=== PATIENT | female | born 1990 | race Caucasian/White ===

== ENCOUNTER 2016-08-20 11:26 | Emergency (ER) | payer MEDICAID ==
[2016-08-20 11:26] VITALS: BMI 17.7
[2016-08-20] MEDS ORDERED: Sodium Chloride 0.9% 500 ML IV ONE (12:06)
[2016-08-20] MEDS ORDERED: Sodium Chloride 0.9% 1,000 ML ONE (12:17)
[2016-08-20 12:31] LABS: BASO % 0.4 % (0.0-2.0); EOS % 0.6 % (0.0-4.0); HEMATOCRIT 36.8 % (34.0-47.0); LYMPH # 1.9 K/uL (1.0-4.3); LYMPH % 29.9 % (20.0-40.0); MEAN CELL VOLUME 98.4 fL (81.0-99.0); MEAN CORPUSCULAR HEMOGLOBIN 32.6 pg (27.0-31.0); MEAN CORPUSCULAR HGB CONC 33.1 g/dL (33.0-37.0); MEAN PLATELET VOLUME 9.5 fL (7.2-11.7); MONO # 0.5 K/uL (0.0-0.8); MONO % 8.8 % (0.0-10.0); RED CELL DISTRIBUTION WIDTH 12.9 % (11.5-14.5); WHITE BLOOD COUNT 6.2 K/uL (4.8-10.8)
[2016-08-20 12:44] LABS: CHLORIDE 100 mmol/L (98-107); POTASSIUM 3.8 mmol/L (3.6-5.2); SODIUM 138 mmol/L (132-148)
[2016-08-20 12:47] LABS: ALB/GLOB RATIO 1.3 (1.0-2.1); ALKALINE PHOSPHATASE 48 U/L (38-126); ALT/SGPT 24 U/L (9-52); AST/SGOT 30 U/L (14-36); BILIRUBIN,TOTAL 1.3 mg/dL (0.2-1.3); BLOOD UREA NITROGEN 14 mg/dL (7-17); CARBON DIOXIDE 27 mmol/L (22-30); GFR AFRICAN-AMERICAN > 60; GLUCOSE,RANDOM 67 mg/dL (65-105); TOTAL PROTEIN 7.1 g/dL (6.3-8.3)
[2016-08-20 12:48] LABS: CALCIUM 8.4 mg/dl (8.6-10.4)
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
[2016-08-20 15:15] VITALS: BP 100/60; PULSE 80; RESP 18; TEMP 97.1; O2SAT 100
== END 2016-08-20 15:14 | disposition home or self-care (01) ==
LOC: C.ER 11:26
DX: R07.0 Pain in throat (principal); R07.89 Other chest pain; Y04.2XXA Assault by strike against or bumped into by another person, initial encounter; Y92.89 Other specified places as the place of occurrence of the external cause
CPT/HCPCS: 70490; 71250; 80053; 84702; 85025; 85610; 85730; 96361; 96374; 99284; J2270; J7040

== ENCOUNTER 2017-07-26 07:51 | Emergency (ER) | payer MEDICAID ==
[2017-07-26 07:52] VITALS: BMI 17.7
[2017-07-26 08:04] VITALS: TEMP 98.8
[2017-07-26] MEDS ORDERED: Albuterol-Ipratrop 3 mg / 0.5 (3 ml) UD INH STA ×2 (08:12→08:44)
[2017-07-26] MEDS ORDERED: Albuterol-Ipratrop 3 mg / 0.5 (3 ml) UD ONE ×2 (08:31→08:57)
--- NOTE | 2017-07-26 08:44 | RAD ---
HISTORY: cough COMPARISON: No prior. TECHNIQUE: Chest PA and lateral FINDINGS: LUNGS: No active pulmonary disease. PLEURA: No significant pleural effusion identified. No pneumothorax apparent. CARDIOVASCULAR: Normal. OSSEOUS STRUCTURES: No significant abnormalities. VISUALIZED UPPER ABDOMEN: Normal. OTHER FINDINGS: Bilateral pierced pieces of jewelry project over each nipple and over the umbilicus IMPRESSION: No active disease.
--- NOTE | 2017-07-26 08:50 | C.PDOC ---
History Of Present Illness 27 y/o female with history of asthma presents to ED with c/o dry non productive cough since yesterday. Patient states cough progressed today prompting visit to ED. Patient states she left asthma pump at home and reports no history of intubation. Patient admits to smoking and denies chest pain, sob, fever or any other complaints at this time. Time Seen by Provider: 07/26/17 08:05 Chief Complaint (Nursing): Cough, Cold, Congestion History Per: Patient History/Exam Limitations: no limitations Onset/Duration Of Symptoms: Days Current Symptoms Are (Timing): Still Present Associated Symptoms: Cough Past Medical History Reviewed: Historical Data, Nursing Documentation, Vital Signs Vital Signs: Last Vital Signs Temp 98.8 F 07/26/17 09:31 Pulse 80 07/26/17 09:31 Resp 18 07/26/17 09:31 BP 96/66 L 07/26/17 09:31 Pulse Ox 100 07/26/17 09:31 - Medical History PMH: Asthma Surgical History: Family History: States: No Known Family Hx - Social History Hx Alcohol Use: No Hx Substance Use: No - Immunization History Hx Tetanus Toxoid Vaccination: Yes Hx Influenza Vaccination: Yes Hx Pneumococcal Vaccination: Yes Review Of Systems Except As Marked, All Systems Reviewed And Found Negative. Respiratory: Positive for: Cough Physical Exam - Physical Exam Appears: Non-toxic, No Acute Distress Skin: Warm, Dry, No Rash Head: Atraumatic, Normacephalic Eye(s): bilateral: Normal Inspection Oral Mucosa: Moist Throat: Normal, No Erythema, No Exudate Neck: Normal ROM, Supple Cardiovascular: Rhythm Regular Respiratory: No Rales, No Rhonchi, Wheezing (Faint expiratory) Gastrointestinal/Abdominal: Soft, No Tenderness, No Guarding, No Rebound Neurological/Psych: Oriented x3, Normal Speech, Normal Cognition ED Course And Treatment O2 Sat by Pulse Oximetry: 99 (RA) Pulse Ox Interpretation: Normal Medical Decision Making Medical Decision Making: Assessment: Asthma exacerbation Plan: Neb treatment, Prednisone Progress: On re eval. patient feels better. Patient discharged with Asthma, advised f.u with PMD in 2 days Disposition Counseled Patient/Family Regarding: Studies Performed, Diagnosis, Need For Followup, Rx Given - Disposition Disposition: HOME/ ROUTINE Disposition Time: 09:25 Condition: IMPROVED Additional Instructions: follow up with your doctor in 2 days call to make an appointment take medications as prescribed return to ER if symptoms worsens or progress decrease/stop smoking Prescriptions: Albuterol HFA [Ventolin HFA 90 mcg/actuation (8 g)] 2 puff IH [id number] #1 puff predniSONE [predniSONE Tab] 50 mg PO DAILY #4 tab Instructions: Asthma in Adults Forms: [facility] (Khmer), General Discharge Instructions - Clinical Impression Clinical Impression: Asthma - Scribe Statement The provider has reviewed the documentation as recorded by the Bryson Berumen All medical record entries made by the Bryson were at my direction and personally dictated by me. I have reviewed the chart and agree that the record accurately reflects my personal performance of the history, physical exam, medical decision making, and the department course for this patient. I have also personally directed, reviewed, and agree with the discharge instructions and disposition.
[2017-07-26 09:32] VITALS: BP 96/66; PULSE 80; RESP 18
[2017-07-26 09:40] VITALS: O2SAT 99
== END 2017-07-26 09:41 | disposition home or self-care (01) ==
LOC: C.ER 07:51
DX: J45.909 Unspecified asthma, uncomplicated (principal)

== ENCOUNTER 2017-10-05 07:55 | Emergency (ER) | payer MEDICAID ==
[2017-10-05 07:55] VITALS: BMI 17.7
[2017-10-05 08:10] VITALS: PULSE 68; TEMP 97.8; O2SAT 100
[2017-10-05 09:03] LABS: BASO % 0.6 % (0.0-2.0); EOS % 0.5 % (0.0-4.0); HEMOGLOBIN 12.7 g/dL (11.0-16.0); LYMPH # 1.4 K/uL (1.0-4.3); LYMPH % 25.6 % (20.0-40.0); MEAN CELL VOLUME 98.5 fL (81.0-99.0); MEAN CORPUSCULAR HEMOGLOBIN 33.9 pg (27.0-31.0); MEAN CORPUSCULAR HGB CONC 34.5 g/dL (33.0-37.0); MEAN PLATELET VOLUME 9.2 fL (7.2-11.7); MONO # 0.4 K/uL (0.0-0.8); MONO % 7.8 % (0.0-10.0); NEUT # 3.7 K/uL (1.8-7.0); NEUT % 65.5 % (50.0-75.0); RBC 3.73 Mil/uL (3.80-5.20); RED CELL DISTRIBUTION WIDTH 12.3 % (11.5-14.5); WHITE BLOOD COUNT 5.6 K/uL (4.8-10.8)
[2017-10-05 09:19] LABS: ALB/GLOB RATIO 1.5 (1.0-2.1); ALBUMIN 4.3 g/dL (3.5-5.0); ALT/SGPT 28 U/L (9-52); AST/SGOT 27 U/L (14-36); BLOOD UREA NITROGEN 13 mg/dL (7-17); CALCIUM 9.3 mg/dl (8.6-10.4); GFR AFRICAN-AMERICAN > 60; GFR NON-AFRICAN AMERICAN > 60; LIPASE 39 U/L (23-300)
--- NOTE | 2017-10-05 09:21 | C.PDOC ---
History Of Present Illness 27-year-old female, presents to the emergency department with complaints of left -upper quadrant abdominal pain that started at 07:00 this morning. Patient states she thought she was hungry, but she ate a banana with no relief. She also took an Ibuprofen with no improvement prompting visit. She denies any nausea/vomiting, fever, chills. LMP was in May, but patient received a depo- shot at the end of . No other complaints at this time. Time Seen by Provider: 10/05/17 08:09 Chief Complaint (Nursing): Abdominal Pain History Per: Patient History/Exam Limitations: no limitations Current Symptoms Are (Timing): Still Present Past Medical History Reviewed: Historical Data, Nursing Documentation, Vital Signs Vital Signs: Last Vital Signs Temp 97.8 F 10/05/17 08:00 Pulse 68 10/05/17 08:00 Resp 16 10/05/17 11:05 BP 110/60 10/05/17 11:05 Pulse Ox 100 10/07/17 00:43 - Medical History PMH: Asthma Surgical History: Family History: States: No Known Family Hx - Social History Hx Alcohol Use: No Hx Substance Use: No - Immunization History Hx Tetanus Toxoid Vaccination: Yes Hx Influenza Vaccination: Yes Hx Pneumococcal Vaccination: Yes Review Of Systems Constitutional: Negative for: Fever, Chills Respiratory: Negative for: Shortness of Breath Gastrointestinal: Positive for: Abdominal Pain. Negative for: Nausea, Vomiting Genitourinary: Negative for: Dysuria, Frequency, Hematuria, Vaginal Discharge, Vaginal Bleeding Musculoskeletal: Negative for: Back Pain Physical Exam - Physical Exam Appears: Non-toxic, Other (uncomfortable) Skin: Normal Color, Warm, Dry, No Rash Head: Atraumatic, Normacephalic Eye(s): bilateral: Normal Inspection Nose: Normal Oral Mucosa: Moist Lips: Normal Appearing Neck: Normal ROM Cardiovascular: Rhythm Regular, No Murmur Respiratory: Normal Breath Sounds, No Accessory Muscle Use Gastrointestinal/Abdominal: Soft, Tenderness (LUQ, epigastric), No Guarding, No Rebound Back: No CVA Tenderness Extremity: Normal ROM, No Deformity Neurological/Psych: Oriented x3, Normal Speech, Normal Cognition, Normal Motor, Normal Sensation ED Course And Treatment - Laboratory Results Result Diagrams: 10/05/17 08:56 10/05/17 08:56 O2 Sat by Pulse Oximetry: 100 Pulse Ox Interpretation: Normal (RA) Medical Decision Making Medical Decision Making: Plan: * Bloodwork * Pepcid, Maalox * UA * Reassess and Disposition * 1033 pt sleeping comfortably on stretcher, easily aroused. reports decreased pain. re-eval of abdomen: minimal tenderness in luq, soft, non distended, no rebound or guarding. will d/c patient home with pepcid, pmd f/u Disposition Counseled Patient/Family Regarding: Studies Performed, Diagnosis, Need For Followup, Rx Given - Disposition Referrals: Eliu Castillo MD [Medical Doctor] - Disposition: HOME/ ROUTINE Disposition Time: 10:38 Condition: IMPROVED Additional Instructions: Please take pepcid as prescribed. Eat bland foods, nothing spicy, greasy or high acid (tomato, citrus). No alcohol or smoking. Follow up with Dr Castillo next week. Return to ER for worse pain. fever, vomiting or any other concerns. Prescriptions: Famotidine [Pepcid] 20 mg PO DAILY #14 tab Instructions: Gastritis (DC) Forms: General Discharge Instructions, [facility] (Bulgarian), Work Excuse - Clinical Impression Clinical Impression: Gastritis - Scribe Statement The provider has reviewed the documentation as recorded by the Scribe (Na Saucedo) All medical record entries made by the Scribe were at my direction and personally dictated by me. I have reviewed the chart and agree that the record accurately reflects my personal performance of the history, physical exam, medical decision making, and the department course for this patient. I have also personally directed, reviewed, and agree with the discharge instructions and disposition.
[2017-10-05 09:25] LABS: SQUAMOUS EPITHIAL 1 /hpf (0-5); URINE BILIRUBIN NEGATIVE (NEGATIVE); URINE BLOOD NEGATIVE (NEGATIVE); URINE CLARITY Clear (Clear); URINE COLOR Yellow (YELLOW); URINE GLUCOSE (UA) NORMAL (Normal); URINE LEUKOCYTE ESTERASE TRACE Leu/uL (Negative); URINE PROTEIN NEGATIVE (NEGATIVE); URINE UROBILINOGEN NORMAL mg/dL (0.2-1.0)
[2017-10-05] MEDS: Aluminum Hydroxide/Magnesium Hydroxide Susp (30 mL) PO STA (09:32)
[2017-10-05] MEDS ORDERED: Aluminum Hydroxide/Magnesium Hydroxide Susp (30 mL) ONE (09:33)
[2017-10-05 11:06] VITALS: BP 110/60; RESP 16
== END 2017-10-05 11:05 | disposition home or self-care (01) ==
LOC: C.ER 07:55
DX: K29.70 Gastritis, unspecified, without bleeding (principal)